=== PATIENT | female | born 1985 | race Two or more races ===

== ENCOUNTER 2022-01-21 09:58 | Observation (INO) | payer MEDICAID ==
[2022-01-21 10:50] LABS: Basophils # (auto) 0 10 ^3/uL (0-0.2); Eosinophils # (auto) 0 10 ^3/uL (0-0.8); Mean Corpuscular Hemoglobin 26.6 pg (28.0-32.0); Monocytes # (auto) 0.5 10 ^3/uL (0-1.3)
[2022-01-21 10:55] LABS: Basophils % (auto) 0.2 % (0.0-2.0); Eosinophils % (auto) 0.1 % (0.0-7.0); Hematocrit 37.6 % (36.0-46.0); Hemoglobin 12.4 g/dL (12.2-16.2); Lymphocytes % (auto) 21.3 % (10.0-50.0); Mean Corpuscular Volume 80.5 fL (80.0-100.0); Monocytes % (auto) 4.9 % (0.0-12.0); Neutrophils # (auto) 6.9 10 ^3/uL (1.6-8.6); Neutrophils % (auto) 73.5 % (37.0-80.0); Red Blood Cells 4.67 10^6/uL (4.0-5.20); Red Cell Distribution Width 15.4 % (11.8-14.3); White Blood Cell 9.4 10^3/uL (4.4-10.8)
[2022-01-21 11:03] LABS: INR 0.94 (0.9-1.15); Partial Thromboplastin Time 29.3 sec (24.6-33.4)
[2022-01-21 11:04] LABS: Albumin 2.6 g/dL (3.4-5.0); Calcium 9.2 mg/dL (8.5-10.1); Uric Acid 5.3 mg/dL (2.6-6.0)
[2022-01-21 11:07] LABS: BUN/Creatinine Ratio 6.7; Bilirubin, Total 0.7 mg/dL (0.2-1.0); Total Protein 6.2 g/dL (6.4-8.2)
[2022-01-21 11:21] LABS: Protein, Urine 20.9 mg/dL (0.0-11.9)
[2022-01-21 11:40] LABS: Urine Bacteria FEW /hpf (None Seen); Urine Blood Negative /uL (Negative); Urine Specific Gravity 1.004 (1.001-1.035); Urine WBC <1 /hpf (0 - 5)
[2022-01-21] MEDS ORDERED: PREN-96 PO (11:58)
== END 2022-01-21 12:15 | disposition home or self-care (01) ==
LOC: UNDOADMOB 09:58 → LDRP 09:58 → UNDODISOB 12:15
PROVIDERS: ADMIT Obstetrics & Gynecology; ATTEND Obstetrics & Gynecology
DX: O13.3 Gestational [pregnancy-induced] hypertension without significant proteinuria, third trimester (principal); Z3A.34 34 weeks gestation of pregnancy; Z79.899 Other long term (current) drug therapy
CPT/HCPCS: 36415; 59025; 80053; 81001; 81002; 82570; 84156; 84550; 85025; 85610; 85730; 94760; G0378

== ENCOUNTER 2022-01-23 08:57 | Observation (INO) | payer MEDICAID ==
[~2022-01-23] VITALS: Ht 160 cm; Wt 127.5 kg
[~2022-01-23 08:57] MED LIST: PREN-96 PO
[2022-01-23 14:05] LABS: Protein, Urine < 5 mg/dL (0.0-11.9)
[2022-01-23 16:51] LABS: Urine Total Volume, 24 Hours 6000 mL
== END 2022-01-23 15:26 | disposition home or self-care (01) ==
LOC: LDRP 12:54 → UNDOADMOB 12:54 → LDRP 13:09 → UNDODISOB 15:26
PROVIDERS: ADMIT Obstetrics & Gynecology; ATTEND Obstetrics & Gynecology
DX: O13.3 Gestational [pregnancy-induced] hypertension without significant proteinuria, third trimester (principal); Z3A.34 34 weeks gestation of pregnancy
CPT/HCPCS: 59025; 76818; 81002; 84156; 94760; G0378

== ENCOUNTER 2022-01-28 07:37 | Observation (INO) | payer MEDICAID ==
[~2022-01-28] VITALS: Ht 160 cm; Wt 128.8 kg
== END 2022-01-28 11:48 | disposition home or self-care (01) ==
LOC: UNDOADMOB 09:53 → LDRP 09:53 → UNDODISOB 11:48
PROVIDERS: ADMIT Obstetrics & Gynecology; ATTEND Obstetrics & Gynecology
DX: O13.3 Gestational [pregnancy-induced] hypertension without significant proteinuria, third trimester (principal); Z3A.35 35 weeks gestation of pregnancy
CPT/HCPCS: 59025; 81002; 94760; G0378

== ENCOUNTER 2022-01-30 10:48 | Observation (INO) | payer MEDICAID | END 2022-01-30 12:53 | disposition home or self-care (01) | LOC: UNDOADMOB 10:48 → LDRP 10:48 | PROVIDERS: ADMIT Obstetrics & Gynecology; ATTEND Obstetrics & Gynecology | DX: O13.3 Gestational [pregnancy-induced] hypertension without significant proteinuria, third trimester (principal); Z3A.35 35 weeks gestation of pregnancy | CPT/HCPCS: 59025; 76818; 81002; G0378 ==

== ENCOUNTER 2022-02-03 08:25 | Observation (INO) | payer MEDICAID | END 2022-02-03 13:52 | disposition home or self-care (01) | LOC: LDRP 13:13 → UNDOADMOB 13:13 → LDRP 13:14 → UNDODISOB 13:52 | PROVIDERS: ADMIT Obstetrics & Gynecology Obstetrics; ATTEND Obstetrics & Gynecology Obstetrics | DX: O26.893 Other specified pregnancy related conditions, third trimester (principal); R03.0 Elevated blood-pressure reading, without diagnosis of hypertension; Z3A.36 36 weeks gestation of pregnancy | CPT/HCPCS: 59025; 81002; 94760; G0378 ==

== ENCOUNTER 2022-02-05 10:40 | Observation (INO) | payer MEDICAID | END 2022-02-05 13:17 | disposition home or self-care (01) | LOC: UNDOADMOB 10:40 → LDRP 10:40 → UNDODISOB 13:17 | PROVIDERS: ADMIT Obstetrics & Gynecology; ATTEND Obstetrics & Gynecology | DX: O13.3 Gestational [pregnancy-induced] hypertension without significant proteinuria, third trimester (principal); Z3A.36 36 weeks gestation of pregnancy | CPT/HCPCS: 59025; 76818; 81002; G0378 ==

== ENCOUNTER 2022-02-06 07:54 | Observation (INO) | payer MEDICAID | END 2022-02-07 14:22 | disposition home or self-care (01) | LOC: LDRP 02-07 10:18 → UNDOADMOB 02-07 10:51 | PROVIDERS: ADMIT Obstetrics & Gynecology; ATTEND Obstetrics & Gynecology | DX: O13.3 Gestational [pregnancy-induced] hypertension without significant proteinuria, third trimester (principal); O42.913 Preterm premature rupture of membranes, unspecified as to length of time between rupture and onset of labor, third trimester; Z3A.36 36 weeks gestation of pregnancy | CPT/HCPCS: 59025; 76818; 81002; G0378 ==

== ENCOUNTER 2022-02-11 07:24 | Observation (INO) | payer MEDICAID | END 2022-02-11 15:14 | disposition home or self-care (01) | LOC: LDRP 12:53 → UNDOADMOB 12:56 → LDRP 12:56 | PROVIDERS: ADMIT Obstetrics & Gynecology; ATTEND Obstetrics & Gynecology | DX: O13.3 Gestational [pregnancy-induced] hypertension without significant proteinuria, third trimester (principal); Z3A.37 37 weeks gestation of pregnancy | CPT/HCPCS: 59025; 76818; 81002; G0378 ==

== ENCOUNTER 2022-02-14 09:57 | Observation (INO) | payer MEDICAID ==
[2022-02-14 12:48] LABS: Basophils # (auto) 0 10 ^3/uL (0-0.2); Eosinophils # (auto) 0 10 ^3/uL (0-0.8); Hemoglobin 12.8 g/dL (12.2-16.2); Monocytes # (auto) 0.6 10 ^3/uL (0-1.3); Neutrophils # (auto) 7.3 10 ^3/uL (1.6-8.6)
[2022-02-14 12:49] LABS: Basophils % (auto) 0.2 % (0.0-2.0); Eosinophils % (auto) 0.5 % (0.0-7.0); Hematocrit 38.2 % (36.0-46.0); Lymphocytes # (auto) 2.5 10 ^3/uL (0.4-5.4); Lymphocytes % (auto) 23.8 % (10.0-50.0); Mean Corpuscular Hgb Conc. 33.6 g/dL (32.0-36.0); Mean Corpuscular Volume 80.4 fL (80.0-100.0); Monocytes % (auto) 6.1 % (0.0-12.0); Neutrophils % (auto) 69.4 % (37.0-80.0); Red Blood Cells 4.75 10^6/uL (4.0-5.20); White Blood Cell 10.5 10^3/uL (4.4-10.8)
[2022-02-14 13:03] LABS: Albumin 2.6 g/dL (3.4-5.0); Calcium 8.9 mg/dL (8.5-10.1); Potassium 4.6 mmol/L (3.5-5.1); Uric Acid 5.8 mg/dL (2.6-6.0)
[2022-02-14 13:07] LABS: BUN/Creatinine Ratio 16.9; Bilirubin, Total 0.6 mg/dL (0.2-1.0); Total Protein 6.3 g/dL (6.4-8.2)
[2022-02-14 13:17] LABS: INR 0.94 (0.9-1.15); Partial Thromboplastin Time 29.9 sec (24.6-33.4)
[2022-02-14 13:17] LABS: Urine Bacteria FEW /hpf (None Seen); Urine Blood Negative /uL (Negative); Urine Hyaline Cast FEW /lpf (0 - 2); Urine Specific Gravity 1.001 (1.001-1.035); Urine WBC 1 /hpf (0 - 5)
[2022-02-14 14:14] LABS: Protein, Urine < 5 mg/dL (0.0-11.9)
[2022-02-14 14:16] LABS: Creatinine, Urine < 0.1 mg/dL (30.0-125.0)
== END 2022-02-14 12:36 | disposition home or self-care (01) ==
LOC: UNDOADMOB 09:57 → LDRP 09:57 → UNDODISOB 12:36
PROVIDERS: ADMIT Obstetrics & Gynecology; ATTEND Obstetrics & Gynecology
DX: O13.3 Gestational [pregnancy-induced] hypertension without significant proteinuria, third trimester (principal); Z3A.37 37 weeks gestation of pregnancy
CPT/HCPCS: 36415; 59025; 76818; 80053; 81001; 82570; 84156; 84550; 85025; 85362; 85379; 85610; 85730; 94760; G0378

== ENCOUNTER 2022-02-16 10:17 | Observation (INO) | payer MEDICAID ==
[2022-02-16 12:22] LABS: Urine Bacteria MOD /hpf (None Seen); Urine Blood Negative /uL (Negative); Urine Specific Gravity 1.004 (1.001-1.035); Urine WBC 1 /hpf (0 - 5)
[2022-02-16 12:24] LABS: Basophils # (auto) 0 10 ^3/uL (0-0.2); Basophils % (auto) 0.3 % (0.0-2.0); Eosinophils # (auto) 0 10 ^3/uL (0-0.8); Lymphocytes # (auto) 1.9 10 ^3/uL (0.4-5.4); Mean Corpuscular Volume 81.1 fL (80.0-100.0)
[2022-02-16 12:26] LABS: Eosinophils % (auto) 0.3 % (0.0-7.0); Hematocrit 38.6 % (36.0-46.0); Hemoglobin 12.7 g/dL (12.2-16.2); Lymphocytes % (auto) 19.7 % (10.0-50.0); Mean Corpuscular Hemoglobin 26.8 pg (28.0-32.0); Mean Corpuscular Hgb Conc. 33.1 g/dL (32.0-36.0); Monocytes # (auto) 0.7 10 ^3/uL (0-1.3); Neutrophils # (auto) 6.9 10 ^3/uL (1.6-8.6); Neutrophils % (auto) 72.7 % (37.0-80.0); Red Blood Cells 4.75 10^6/uL (4.0-5.20); Red Cell Distribution Width 16.1 % (11.8-14.3); White Blood Cell 9.5 10^3/uL (4.4-10.8)
[2022-02-16 12:32] LABS: INR 0.94 (0.9-1.15); Partial Thromboplastin Time 29.9 sec (24.6-33.4)
[2022-02-16 12:39] LABS: Albumin 2.5 g/dL (3.4-5.0); Calcium 8.9 mg/dL (8.5-10.1); Potassium 4.3 mmol/L (3.5-5.1)
[2022-02-16 12:42] LABS: BUN/Creatinine Ratio 18.1; Bilirubin, Total 0.4 mg/dL (0.2-1.0); Total Protein 5.6 g/dL (6.4-8.2); Uric Acid 5.9 mg/dL (2.6-6.0)
[2022-02-16 13:24] LABS: Protein, Urine 7.2 mg/dL (0.0-11.9)
[2022-02-16 13:24] LABS: Protein, Urine < 5 mg/dL (0.0-11.9)
[2022-02-16 13:33] LABS: Urine Total Volume, 24 Hours 6000 mL
== END 2022-02-16 14:39 | disposition home or self-care (01) ==
LOC: LDRP 10:17
PROVIDERS: ADMIT Obstetrics & Gynecology; ATTEND Obstetrics & Gynecology
DX: O13.3 Gestational [pregnancy-induced] hypertension without significant proteinuria, third trimester (principal); O99.213 Obesity complicating pregnancy, third trimester; E66.01 Morbid (severe) obesity due to excess calories; Z3A.38 38 weeks gestation of pregnancy
CPT/HCPCS: 36415; 59025; 76818; 80053; 81001; 81002; 82570; 84156; 84550; 85025; 85610; 85730; 94760; G0378

== ENCOUNTER 2022-02-18 07:31 | Observation (INO) | payer MEDICAID | END 2022-02-18 11:30 | disposition home or self-care (01) | LOC: UNDOADMOB 09:08 → LDRP 09:08 → UNDODISOB 11:30 | PROVIDERS: ADMIT Obstetrics & Gynecology; ATTEND Obstetrics & Gynecology | DX: O13.3 Gestational [pregnancy-induced] hypertension without significant proteinuria, third trimester (principal); Z3A.38 38 weeks gestation of pregnancy | CPT/HCPCS: 59025; 76818; 81002; 94760; G0378 ==

== ENCOUNTER 2022-02-20 08:15 | Observation (INO) | payer MEDICAID ==
[2022-02-20 12:33] LABS: Basophils # (auto) 0 10 ^3/uL (0-0.2); Basophils % (auto) 0.2 % (0.0-2.0); Lymphocytes # (auto) 2.2 10 ^3/uL (0.4-5.4); Monocytes # (auto) 0.7 10 ^3/uL (0-1.3)
[2022-02-20 12:38] LABS: Eosinophils # (auto) 0 10 ^3/uL (0-0.8); Eosinophils % (auto) 0.4 % (0.0-7.0); Hematocrit 40.1 % (36.0-46.0); Hemoglobin 13.2 g/dL (12.2-16.2); Lymphocytes % (auto) 21.9 % (10.0-50.0); Mean Corpuscular Volume 81.9 fL (80.0-100.0); Monocytes % (auto) 6.9 % (0.0-12.0); Neutrophils % (auto) 70.6 % (37.0-80.0); Red Blood Cells 4.89 10^6/uL (4.0-5.20); Red Cell Distribution Width 15.8 % (11.8-14.3); White Blood Cell 9.9 10^3/uL (4.4-10.8)
[2022-02-20 12:46] LABS: Albumin 2.5 g/dL (3.4-5.0); Calcium 8.7 mg/dL (8.5-10.1); Potassium 3.7 mmol/L (3.5-5.1)
[2022-02-20 12:52] LABS: BUN/Creatinine Ratio 19.5; Bilirubin, Total 0.4 mg/dL (0.2-1.0); Total Protein 6.4 g/dL (6.4-8.2); Uric Acid 5.9 mg/dL (2.6-6.0)
[2022-02-20 12:54] LABS: INR 0.93 (0.9-1.15); Partial Thromboplastin Time 29.9 sec (24.6-33.4)
[2022-02-20 12:56] LABS: Protein, Urine 11.7 mg/dL (0.0-11.9)
[2022-02-20 13:03] LABS: Urine Bacteria MANY /hpf (None Seen); Urine Blood Negative /uL (Negative); Urine Specific Gravity 1.007 (1.001-1.035); Urine WBC 3 /hpf (0 - 5)
== END 2022-02-20 13:30 | disposition home or self-care (01) ==
LOC: LDRP 09:55 → UNDOADMOB 09:55 → LDRP 10:24
PROVIDERS: ADMIT Obstetrics & Gynecology; ATTEND Obstetrics & Gynecology
DX: O13.3 Gestational [pregnancy-induced] hypertension without significant proteinuria, third trimester (principal); Z3A.38 38 weeks gestation of pregnancy; Z79.899 Other long term (current) drug therapy
CPT/HCPCS: 36415; 59025; 80053; 81001; 81002; 82570; 84156; 84550; 85025; 85610; 85730; 94760; G0378

== ENCOUNTER 2022-02-20 22:00 | Inpatient (IN) | payer MEDICAID ==
[~2022-02-20] VITALS: Ht 160 cm; Wt 128.8 kg
[2022-02-20] MEDS ORDERED: DERMOPLAST 60ML BOTTLE TOP PRN (22:15)
[2022-02-20] MEDS ORDERED: PENICILLIN G POT 5MIL/D5 50ML 50 ML IV ONE (22:15)
[2022-02-20] MEDS ORDERED: PROMETHAZINE HCL 25 MG/ML 1ML IV PRN (22:15)
[2022-02-20] MEDS ORDERED: WITCH HAZEL-GLYCERIN PAD TOP PRN (22:15)
[2022-02-20] MEDS ORDERED: PHISODERM TOP SOLN 240ML BTL TOP PRN (22:15)
[2022-02-20] MEDS ORDERED: LIDOCAINE 2%HCL (LOCAL ANESTH.) INJ 10ml MDV IJ PRN (22:15)
[2022-02-20] MEDS ORDERED: BUTORPHANOL TARTRATE 2 MG/1 ML VIAL IV PRN ×2 (22:15)
[2022-02-20] MEDS ORDERED: LABETALOL HCL 5 MG/ML 4ML SYRINGE IV PRN (23:00)
[2022-02-20 23:10] LABS: Basophils # (auto) 0 10 ^3/uL (0-0.2); Basophils % (auto) 0.3 % (0.0-2.0); Eosinophils # (auto) 0.1 10 ^3/uL (0-0.8); Eosinophils % (auto) 0.6 % (0.0-7.0); Hematocrit 37.9 % (36.0-46.0); Hemoglobin 12.9 g/dL (12.2-16.2); Lymphocytes # (auto) 2.8 10 ^3/uL (0.4-5.4); Lymphocytes % (auto) 27.3 % (10.0-50.0); Mean Corpuscular Hemoglobin 27.4 pg (28.0-32.0); Mean Corpuscular Volume 80.5 fL (80.0-100.0); Monocytes # (auto) 0.7 10 ^3/uL (0-1.3); Monocytes % (auto) 6.8 % (0.0-12.0); Neutrophils # (auto) 6.8 10 ^3/uL (1.6-8.6); Nucleated Red Blood Cells % 0.1 %; Red Cell Distribution Width 16.1 % (11.8-14.3); White Blood Cell 10.4 10^3/uL (4.4-10.8)
[2022-02-20 23:11] LABS: Urine Bacteria MANY /hpf (None Seen); Urine Blood Negative /uL (Negative); Urine Hyaline Cast FEW /lpf (0 - 2); Urine Specific Gravity 1.004 (1.001-1.035); Urine WBC 1 /hpf (0 - 5)
[2022-02-20 23:27] LABS: INR 0.94 (0.9-1.15); Partial Thromboplastin Time 28.8 sec (24.6-33.4)
[2022-02-20 23:29] LABS: Creatinine, Urine 27 mg/dL (30.0-125.0); Protein, Urine < 5 mg/dL (0.0-11.9)
[2022-02-20 23:29] LABS: Alcohol, Urine < 3.0 mg/dL (0-10); Amphetamine Screen, Urine NEGATIVE (NEGATIVE); Barbiturate Scree,Urine NEGATIVE (NEGATIVE); Benzodiazephine Screen, Urine NEGATIVE (NEGATIVE); Cannabinoid Screen, Urine NEGATIVE (NEGATIVE); Cocaine Screen, Urine NEGATIVE (NEGATIVE); Opiate Scree,Urine NEGATIVE (NEGATIVE); Phencyclidine Screen, Urine NEGATIVE (NEGATIVE)
[2022-02-20 23:30] LABS: Albumin 2.6 g/dL (3.4-5.0); Calcium 8.8 mg/dL (8.5-10.1); Potassium 4.2 mmol/L (3.5-5.1)
[2022-02-20 23:35] LABS: BUN/Creatinine Ratio 17.9; Bilirubin, Total 0.4 mg/dL (0.2-1.0); Total Protein 5.8 g/dL (6.4-8.2); Uric Acid 5.8 mg/dL (2.6-6.0)
[2022-02-21] MEDS ORDERED: PENICILLIN G POTASSIUM 2,500,000 UNITS in D5W 5% 50 ML IV SCH (02:15)
[2022-02-21] MEDS: LACTATED RINGER'S 1,000 ML IV SCH ×3 (04:02→18:00)
[2022-02-21] MEDS ORDERED: ONDANSETRON HCL 4 MG/2 ML VIAL IV ONE (05:00)
[2022-02-21] MEDS: miSOPROStol 50 MCG per PRE-CUT 1/2 TAB PO PRN ×5 (05:33→21:54)
[2022-02-21] MEDS ORDERED: miSOPROStol 100 mcg TAB SL PRN (07:45)
[2022-02-21] MEDS ORDERED: miSOPROStol 100 mcg TAB PR PRN (07:45)
[2022-02-21] MEDS ORDERED: CARBOPROST TROMETHAMINE 250 MCG/1ML VIAL IM PRN (07:45)
[2022-02-21] MEDS ORDERED: METHYLERGONOVINE MALEATE 0.2 MG/ML AMP IM PRN (07:45)
[2022-02-21] MEDS ORDERED: LACT. RINGERS/OXYTOCIN 20UNITS 500 ML IV ONE ×2 (17:30→18:00)
[2022-02-22] MEDS: miSOPROStol 50 MCG per PRE-CUT 1/2 TAB PO PRN ×2 (03:25→23:16)
[2022-02-22] MEDS: LACTATED RINGER'S 1,000 ML IV SCH ×3 (03:45→19:19)
[2022-02-22] MEDS ORDERED: DINOPROSTONE 10MG VAG SUPP PV ONE (07:00)
[2022-02-22 08:06] LABS: RPR Non Reactive (Non Reactive)
[2022-02-22] MEDS ORDERED: LACT. RINGER'S W OXYTOCIN 20UNITS/1000 ML IV SCH (10:00)
[2022-02-22] MEDS ORDERED: PENICILLIN G POT 5MIL/D5 50ML 0 ML IV ONE (12:57)
[2022-02-22] MEDS ORDERED: LABETALOL HCL 200 MG TAB PO PRN (20:30)
[2022-02-23] MEDS ORDERED: miSOPROStol 100 mcg TAB ONE ×2 (03:26→09:54)
[2022-02-23] MEDS: LACTATED RINGER'S 1,000 ML IV SCH ×3 (03:35→17:40)
[2022-02-23] MEDS: miSOPROStol 50 MCG per PRE-CUT 1/2 TAB PO PRN (03:36)
[2022-02-23] MEDS ORDERED: LABETALOL HCL 200 MG TAB PO PRN ×2 (05:45→21:15)
[2022-02-23] MEDS: miSOPROStol 100 mcg TAB PO PRN ×2 (15:41→20:50)
[2022-02-23] MEDS ORDERED: hydrALAZINE HCL 20 MG/ML VL IV PRN ×2 (22:30→23:30)
[2022-02-24] MEDS: LACTATED RINGER'S 1,000 ML IV SCH ×5 (00:45→20:52)
[2022-02-24 01:44] LABS: Basophils # (auto) 0.1 10 ^3/uL (0-0.2); Basophils % (auto) 0.9 % (0.0-2.0); Eosinophils # (auto) 0 10 ^3/uL (0-0.8); Eosinophils % (auto) 0.5 % (0.0-7.0); Hemoglobin 11.9 g/dL (12.2-16.2); Lymphocytes # (auto) 1.7 10 ^3/uL (0.4-5.4); Lymphocytes % (auto) 19.8 % (10.0-50.0); Mean Corpuscular Hemoglobin 27.9 pg (28.0-32.0); Mean Corpuscular Hgb Conc. 34.1 g/dL (32.0-36.0); Monocytes # (auto) 0.5 10 ^3/uL (0-1.3); Monocytes % (auto) 5.6 % (0.0-12.0); Neutrophils # (auto) 6.3 10 ^3/uL (1.6-8.6); Neutrophils % (auto) 73.2 % (37.0-80.0); Red Blood Cells 4.26 10^6/uL (4.0-5.20); Red Cell Distribution Width 16.1 % (11.8-14.3); White Blood Cell 8.7 10^3/uL (4.4-10.8)
[2022-02-24 02:00] LABS: INR 0.97 (0.9-1.15); Partial Thromboplastin Time 29.3 sec (24.6-33.4)
[2022-02-24 02:01] LABS: Albumin 2.2 g/dL (3.4-5.0); Calcium 7.6 mg/dL (8.5-10.1); Potassium 3.9 mmol/L (3.5-5.1)
[2022-02-24 02:03] LABS: BUN/Creatinine Ratio 11.3
[2022-02-24 02:06] LABS: Bilirubin, Total 0.6 mg/dL (0.2-1.0); Total Protein 5.4 g/dL (6.4-8.2)
[2022-02-24] MEDS ORDERED: LABETALOL HCL 200 MG TAB PO SCH (06:00)
[2022-02-24] MEDS: LABETALOL HCL 200 MG TAB PO SCH ×2 (09:00→21:55)
[2022-02-24] MEDS ORDERED: LABETALOL HCL 5 MG/ML 4ML SYRINGE IV PRN ×3 (09:00→09:15)
[2022-02-24 09:27] LABS: Basophils # (auto) 0 10 ^3/uL (0-0.2); Basophils % (auto) 0.4 % (0.0-2.0); Eosinophils # (auto) 0 10 ^3/uL (0-0.8); Lymphocytes # (auto) 1.9 10 ^3/uL (0.4-5.4); Nucleated Red Blood Cells % 0.1 %
[2022-02-24 09:29] LABS: Eosinophils % (auto) 0.5 % (0.0-7.0); Hematocrit 35.9 % (36.0-46.0); Lymphocytes % (auto) 21.9 % (10.0-50.0); Mean Corpuscular Hemoglobin 27.3 pg (28.0-32.0); Mean Corpuscular Hgb Conc. 33.5 g/dL (32.0-36.0); Mean Corpuscular Volume 81.5 fL (80.0-100.0); Monocytes # (auto) 0.8 10 ^3/uL (0-1.3); Monocytes % (auto) 9.1 % (0.0-12.0); Neutrophils # (auto) 5.8 10 ^3/uL (1.6-8.6); Neutrophils % (auto) 68.1 % (37.0-80.0); Red Cell Distribution Width 16.5 % (11.8-14.3); White Blood Cell 8.5 10^3/uL (4.4-10.8)
[2022-02-24 09:34] LABS: INR 0.98 (0.9-1.15); Partial Thromboplastin Time 28.5 sec (24.6-33.4)
[2022-02-24 09:35] LABS: Albumin 2.3 g/dL (3.4-5.0); Calcium 7.8 mg/dL (8.5-10.1); Potassium 3.9 mmol/L (3.5-5.1)
[2022-02-24 09:40] LABS: BUN/Creatinine Ratio 8.2; Bilirubin, Total 0.6 mg/dL (0.2-1.0); Total Protein 5.2 g/dL (6.4-8.2); Uric Acid 8.2 mg/dL (2.6-6.0)
[2022-02-24] MEDS ORDERED: METHYLERGONOVINE MALEATE 0.2 MG/ML AMP IM ONE (11:15)
[2022-02-24] MEDS ORDERED: miSOPROStol 100 mcg TAB PR PRN (11:15)
[2022-02-24] MEDS ORDERED: LACT. RINGERS/OXYTOCIN 20UNITS 500 ML IV ONE ×2 (11:15→11:45)
[2022-02-24] MEDS ORDERED: miSOPROStol 100 mcg TAB SL PRN (11:15)
[2022-02-24] MEDS ORDERED: LACT. RINGERS/OXYTOCIN 20UNITS 1,000 ML IV SCH (12:45)
[2022-02-24 12:57] LABS: Protein, Urine 10.4 mg/dL (0.0-11.9)
[2022-02-24] MEDS ORDERED: LIDOCAINE HCL 2 %PF INJ 10ML AMP IJ ONE (21:15)
[2022-02-24] MEDS ORDERED: NALOXONE HCL 0.4 MG/ML VIAL IV ONE (21:15)
[2022-02-24] MEDS ORDERED: fentaNYL CITRATE 100 MCG/2 ML VL IV ONE (21:15)
[2022-02-24] MEDS ORDERED: ROPIVACAINE HCL 200 ML EPI SCH ×2 (21:15→22:19)
[2022-02-24] MEDS ORDERED: ePHEDrine SULFATE 50 MG/ML AMP IV ONE (21:15)
[2022-02-25] MEDS ORDERED: LACTATED RINGER'S 1,000 ML IV ONE (03:00)
[2022-02-25] MEDS ORDERED: LIDOCAINE 2%HCL (LOCAL ANESTH.) INJ 10ml MDV IJ PRN (04:15)
[2022-02-25] MEDS ORDERED: AMPICILLIN & SULBACTAM SODIUM 3 GM in SODIUM CHL 0.9% 100 ML IV SCH (05:00)
[2022-02-25] MEDS ORDERED: ACETAMINOPHEN 325 MG TAB PO ONE (05:00)
[2022-02-25] MEDS ORDERED: AMPICILLIN SOD 1 GM VL ONE (05:27)
[2022-02-25] MEDS ORDERED: GENTAMICIN PER PHARMACY 0 ML IV SCH ×2 (05:30→11:30)
[2022-02-25] MEDS ORDERED: GENTAMICIN SULFATE IV ONE (05:45)
[2022-02-25] MEDS ORDERED: SODIUM CHL 0.9% IV ONE (05:45)
[2022-02-25] MEDS: AMPICILLIN SOD 2GM INJ 2 GM in SODIUM CHL 0.9% 100 ML IV SCH ×2 (06:00→12:32)
[2022-02-25] MEDS ORDERED: GENTAMICIN SULFATE 300 MG in D5W 5% 100 ML IV ONE (07:30)
[2022-02-25] MEDS ORDERED: ACETAMINOPHEN 325 MG TAB PO PRN (09:00)
[2022-02-25] MEDS: LABETALOL HCL 200 MG TAB PO SCH ×2 (09:00→22:43)
[2022-02-25] MEDS ORDERED: IBUPROFEN 600 MG TAB PO PRN (09:00)
[2022-02-25] MEDS ORDERED: ONDANSETRON ODT 4 MG TAB PO PRN (09:00)
[2022-02-25 11:05] VITALS: BP 126/89
[2022-02-25 15:00] VITALS: BP 117/76
[2022-02-25] MEDS: CEPHALEXIN 250 MG CAP PO SCH ×2 (18:04→23:56)
[2022-02-25 19:00] VITALS: BP 135/80
[2022-02-25] MEDS ORDERED: DOCUSATE SOD 100 MG CAP PO SCH (22:00)
[2022-02-25 23:00] VITALS: BP 149/79
[2022-02-26 03:10] VITALS: BP 103/53
[2022-02-26] MEDS: CEPHALEXIN 250 MG CAP PO SCH (06:03)
[2022-02-26 07:00] VITALS: BP 113/60
[2022-02-26] MEDS ORDERED: MEASLES, MUMPS & RUBELLA VAC(MMRII) 0.5ML SC ONE (08:00)
[2022-02-26] MEDS ORDERED: GENTAMICIN SULFATE 300 MG in D5W 5% 100 ML IV SCH (10:00)
== END 2022-02-26 08:14 | disposition home or self-care (01) | DRG 560 ==
LOC: LDRP 22:00
PROVIDERS: ADMIT Obstetrics & Gynecology; ATTEND Obstetrics & Gynecology
PROC: 3E0P7VZ Introduction of Hormone into Female Reproductive, Via Natural or Artificial Opening (ICD-10-PCS; 2022-02-21)
PROC: 10E0XZZ Delivery of Products of Conception, External Approach (ICD-10-PCS; principal; 2022-02-25)
PROC: 0KQM0ZZ Repair Perineum Muscle, Open Approach (ICD-10-PCS; 2022-02-25)
PROC: 3E0R3BZ Introduction of Anesthetic Agent into Spinal Canal, Percutaneous Approach (ICD-10-PCS; 2022-02-25)
PROC: 00HU33Z Insertion of Infusion Device into Spinal Canal, Percutaneous Approach (ICD-10-PCS; 2022-02-25)
PROC: 0W8NXZZ Division of Female Perineum, External Approach (ICD-10-PCS; 2022-02-25)
PROC: 10907ZC Drainage of Amniotic Fluid, Therapeutic from Products of Conception, Via Natural or Artificial Opening (ICD-10-PCS; 2022-02-25)
DX: O13.4 Gestational [pregnancy-induced] hypertension without significant proteinuria, complicating childbirth (principal); Z37.0 Single live birth; O14.94 Unspecified pre-eclampsia, complicating childbirth; E66.01 Morbid (severe) obesity due to excess calories; O99.214 Obesity complicating childbirth; O69.1XX0 Labor and delivery complicated by cord around neck, with compression, not applicable or unspecified; K21.9 Gastro-esophageal reflux disease without esophagitis; Z83.3 Family history of diabetes mellitus; O99.62 Diseases of the digestive system complicating childbirth; O70.1 Second degree perineal laceration during delivery; Z20.822 Contact with and (suspected) exposure to COVID-19; Z3A.39 39 weeks gestation of pregnancy
CPT/HCPCS: 36415; 59025; 59200; 59409; 62282; 76815; 80053; 80307; 81001; 82570; 84156; 84550; 85025; 85610; 85730; 86592; 86850; 86900; 86901; 94760; 94762; 96360; 96361; 96365; 96366; 96374; G0378; J2405; J2540; J2590; J7060